=== PATIENT | male | born 1985 | race Caucasian/White ===

== ENCOUNTER 2017-08-24 08:33 | Emergency (ER) | payer SELFPAY ==
[~2017-08-24] VITALS: Ht 175.3 cm; Wt 126.8 kg
[~2017-08-24 08:33] MED LIST: CIPRO 500MG TA500 MG PO; CIPRODEX OT; FLOMAX 0.40.4 MG/CAP PO; MUCINEX 60600 MG/TA1 PO; MULTI VITAMINS1 TAB PO; NO HOME MEDICATIONS; PERCOCET 325 MG1 TA2 PO; TYLENOL 8 HR PO; ZOFRAN 4MG T4 MG/TAB PO
[2017-08-24 08:38] VITALS: BP 139/90; TEMP 98.1
[2017-08-24] MEDS ORDERED: FLEXERIL 1010 MG/TAB PO (10:33)
[2017-08-24 10:44] VITALS: PULSE 80
== END 2017-08-24 10:44 | disposition home or self-care (01) ==
LOC: COL.ER 08:33
DX: M79.651 Pain in right thigh (principal); W22.03XA Walked into furniture, initial encounter; Y92.69 Other specified industrial and construction area as the place of occurrence of the external cause

== ENCOUNTER 2018-11-03 03:48 | Emergency (ER) | payer SELFPAY ==
[~2018-11-03] VITALS: Ht 177.8 cm; Wt 121.8 kg
[~2018-11-03 03:48] MED LIST changes: +FLEXERIL 1010 MG/TAB PO
[2018-11-03 04:04] VITALS: TEMP 100.1
[2018-11-03 04:05] LABS: COLLECTION METHOD CLEAN CATCH
[2018-11-03 04:15] LABS: MUCOUS Present /lpf; PH 5 (5-8); SQUAMOUS EPITHELIAL None Seen /hpf; URINE APPEARANCE Turbid; URINE BACTERIA None Seen /hpf; URINE BILIRUBIN Negative (NEGATIVE); URINE BLOOD 2+ (NEGATIVE); URINE COLOR Yellow; URINE GLUCOSE Negative (NEGATIVE); URINE KETONE Negative (NEGATIVE); URINE LEUKOCYTE ESTERASE 3+ (NEGATIVE); URINE NITRATE Negative (NEGATIVE); URINE PROTEIN(semi-quant) 2+ (NEGATIVE); URINE RBC >50 /hpf; URINE UROBILINOGEN Negative (NEGATIVE)
[2018-11-03 04:40] LABS: BASO % 0.3 % (0.0-2.0); EOS # 0.2 (0.0-0.7); EOS % 1.8 % (0-4.0); GRAN # 7.1 (1.4-6.5); GRAN % 67.5 % (42.2-75.2); HEMATOCRIT 46.2 % (42.0-52.0); HEMOGLOBIN 15.2 g/dl (13.5-18.0); LYMPH # 2.1 (1.2-3.4); LYMPH % 20.2 % (20.0-51.0); MEAN CELL VOLUME 87 fl (80.0-100.0); MEAN CORPUSCULAR HEMOGLOBIN 29 pg (27.0-31.0); MEAN CORPUSCULAR HGB CONC 33 g/dl (33.0-37.0); MEAN PLATELET VOLUME 9.1 fl (7.4-10.4); MONO # 0.9 (0.1-0.6); MONO % 8.8 % (1.7-9.3); PLATELET COUNT 210 K/mm3 (130-400); RED BLOOD COUNT 5.34 M/mm3 (4.20-5.60)
[2018-11-03 04:53] LABS: ALBUMIN 4.5 gm/dL (3.5-5.0); BILIRUBIN,TOTAL 0.4 mg/dL (0.0-1.0); C-REACTIVE PROTEIN 3.7 mg/dL (0.0-0.9); CALCIUM 9.6 mg/dL (8.4-10.2); CREATININE, serum 1.03 mg/dL (0.66-1.25); POTASSIUM 3.8 mmol/L (3.4-5.0); TOTAL PROTEIN 7.7 gm/dL (6.4-8.2)
[2018-11-03] MEDS ORDERED: CIPRO 500MG TA500 MG PO (07:05)
[2018-11-03 07:37] VITALS: BP 134/94; PULSE 78
== END 2018-11-03 07:41 | disposition home or self-care (01) ==
LOC: COL.ER 03:48
PROVIDERS: Emergency Medicine
DX: N34.2 Other urethritis (principal); Z87.442 Personal history of urinary calculi
CPT/HCPCS: J1580; J1885; J7030; Q9967

== ENCOUNTER 2019-04-04 06:18 | Emergency (ER) | payer SELFPAY ==
[~2019-04-04] VITALS: Ht 175.3 cm; Wt 121.8 kg
[2019-04-04 06:22] VITALS: TEMP 98.5
[2019-04-04 06:46] LABS: HEMATOCRIT 47.4 % (42.0-52.0); HEMOGLOBIN 15.7 g/dl (13.5-18.0); MEAN CELL VOLUME 85 fl (80.0-100.0); MEAN CORPUSCULAR HEMOGLOBIN 28 pg (27.0-31.0); MEAN CORPUSCULAR HGB CONC 33 g/dl (33.0-37.0); MEAN PLATELET VOLUME 8.8 fl (7.4-10.4); PLATELET COUNT 219 K/mm3 (130-400); RED BLOOD COUNT 5.56 M/mm3 (4.20-5.60); REDCELL DISTRIBUTION WIDTH-CV 12.7 % (11.5-14.5)
[2019-04-04] MEDS ORDERED: PROAIR HFA0.09 MG/AC IH (06:50)
[2019-04-04 06:57] LABS: ALANINE AMINOTRANSFERASE 37 U/L (21-72); ALBUMIN 4.3 gm/dL (3.5-5.0); ALKALINE PHOSPHATASE 76 U/L (50-136); ANION GAP 12 mmol/L (7-16); AST,SGOT 25 U/L (15-37); BILIRUBIN,TOTAL 0.2 mg/dL (0.0-1.0); BLOOD UREA NITROGEN 13 mg/dL (9-20); CARBON DIOXIDE 24 mmol/L (22-30); CHLORIDE 106 mmol/L (98-107); CREATININE, serum 1.07 (0.66-1.25); GLUCOSE 123 mg/dL (74-106); POTASSIUM 4.1 mmol/L (3.4-5.0); SODIUM 142 mmol/L (137-145); TOTAL PROTEIN 7.5 gm/dL (6.4-8.2)
[2019-04-04 07:08] LABS: TROPONIN-I < 0.012 ng/mL (0.000-0.035)
[2019-04-04 07:27] LABS: BAND 4 % (0-10); EOSINOPHIL 1 % (0-4); LYMPHOCYTE 26 % (20.0-51.0); METAMYELOCYTE 1 % (0-0); NEUTROPHILS 62 % (42.0-75.2); PLATELET ESTIMATE NORMAL (NORMAL)
[2019-04-04 07:36] VITALS: BP 125/90; PULSE 98
== END 2019-04-04 07:40 | disposition home or self-care (01) ==
LOC: COL.ER 06:18
PROVIDERS: Emergency Medicine
DX: R06.02 Shortness of breath (principal); R05 Cough; Z87.442 Personal history of urinary calculi
CPT/HCPCS: J8540

== ENCOUNTER 2020-06-25 21:21 | Emergency (ER) | payer SELFPAY ==
[~2020-06-25] VITALS: Ht 175.3 cm; Wt 118.2 kg
[~2020-06-25 21:21] MED LIST changes: +PROAIR HFA0.09 MG/AC IH
[2020-06-25 21:26] VITALS: TEMP 98.5
[2020-06-25 22:12] LABS: BASO % 0.3 % (0.0-2.0); EOS # 0.3 (0.0-0.7); EOS % 2.5 % (0-4.0); GRAN % 78.8 % (42.2-75.2); HEMATOCRIT 47.2 % (42.0-52.0); HEMOGLOBIN 15.7 g/dl (13.5-18.0); LYMPH # 1.3 (1.2-3.4); LYMPH % 11.5 % (20.0-51.0); MEAN CELL VOLUME 86 fl (80.0-100.0); MEAN CORPUSCULAR HEMOGLOBIN 29 pg (27.0-31.0); MEAN CORPUSCULAR HGB CONC 33 g/dl (33.0-37.0); MEAN PLATELET VOLUME 9.5 fl (7.4-10.4); MONO # 0.7 (0.1-0.6); MONO % 5.8 % (1.7-9.3); PLATELET COUNT 203 K/mm3 (130-400); RED BLOOD COUNT 5.49 M/mm3 (4.20-5.60); REDCELL DISTRIBUTION WIDTH-CV 12.7 % (11.5-14.5)
[2020-06-25 22:21] LABS: COLLECTION METHOD CLEAN CATCH
[2020-06-25 22:27] LABS: MUCOUS Present /lpf; PH 5 (5-8); SQUAMOUS EPITHELIAL 0-2 /hpf; URINE APPEARANCE Clear; URINE BACTERIA None Seen /hpf; URINE BILIRUBIN Negative (NEGATIVE); URINE BLOOD Negative (NEGATIVE); URINE COLOR Yellow; URINE GLUCOSE Negative (NEGATIVE); URINE KETONE Negative (NEGATIVE); URINE LEUKOCYTE ESTERASE Negative (NEGATIVE); URINE NITRATE Negative (NEGATIVE); URINE PROTEIN(semi-quant) Negative (NEGATIVE); URINE RBC 0-2 /hpf; URINE UROBILINOGEN Negative (NEGATIVE)
[2020-06-25 22:29] LABS: ALBUMIN 4.4 gm/dL (3.5-5.0); BILIRUBIN,TOTAL 0.6 mg/dL (0.0-1.0); C-REACTIVE PROTEIN 0.8 mg/dL (0.0-0.9); CALCIUM 9.5 mg/dL (8.4-10.2); CREATININE, serum 1.02 (0.66-1.25); POTASSIUM 4.2 mmol/L (3.4-5.0); TOTAL PROTEIN 7.7 gm/dL (6.4-8.2)
[2020-06-25] MEDS ORDERED: ZOFRAN ODT4 MG PO (23:19)
[2020-06-25 23:44] VITALS: BP 117/88; PULSE 73
== END 2020-06-25 23:44 | disposition home or self-care (01) ==
LOC: COL.ER 21:21
PROVIDERS: Nurse Practitioner
DX: R10.9 Unspecified abdominal pain (principal); R11.2 Nausea with vomiting, unspecified; R19.7 Diarrhea, unspecified; Z88.0 Allergy status to penicillin; Z88.1 Allergy status to other antibiotic agents; Z87.891 Personal history of nicotine dependence
CPT/HCPCS: J1885; J2405; J7030

== ENCOUNTER 2021-09-11 02:06 | Emergency (ER) | payer SELFPAY ==
[~2021-09-11] VITALS: Ht 175.3 cm; Wt 127.3 kg
[~2021-09-11 02:06] MED LIST changes: +ZOFRAN ODT4 MG PO
[2021-09-11 03:56] VITALS: BP 132/86; PULSE 87; TEMP 98.4
== END 2021-09-11 03:56 | disposition home or self-care (01) ==
LOC: COL.ER 02:06
DX: M79.671 Pain in right foot (principal); X50.1XXA Overexertion from prolonged static or awkward postures, initial encounter; Y93.89 Activity, other specified